=== PATIENT | male | born 1975 | race Caucasian/White ===

== ENCOUNTER 2019-10-09 02:09 | Emergency (ER) | payer SELFPAY ==
[~2019-10-09] VITALS: Ht 167.6 cm; Wt 68.0 kg
[2019-10-09] MEDS ORDERED: METHYLPREDNISOLONE SOD SUCC 125 MG/2 ML VIAL IM ONE (02:45)
[2019-10-09] MEDS ORDERED: TRAMADOL 50MG TABLET PO ONE (04:30)
[2019-10-09 05:16] VITALS: BP 123/74
== END 2019-10-09 05:17 | disposition home or self-care (01) ==
LOC: ER 02:20
DX: S39.012A Strain of muscle, fascia and tendon of lower back, initial encounter (principal); M62.830 Muscle spasm of back; X58.XXXA Exposure to other specified factors, initial encounter; Y93.89 Activity, other specified; Y92.89 Other specified places as the place of occurrence of the external cause
CPT/HCPCS: 72100; 96372; 99283; J2930

== ENCOUNTER 2019-11-13 01:36 | Emergency (ER) | payer SELFPAY ==
[~2019-11-13] VITALS: Ht 165.1 cm; Wt 65.0 kg
[2019-11-13] MEDS ORDERED: KETOROLAC 30MG/ML VIAL IM ONE (02:30)
[2019-11-13] MEDS ORDERED: IPRATROPIUM BROMIDE (0.02%) 0.5MG/2.5ML NEB HHN STA (03:29)
[2019-11-13] MEDS ORDERED: ALBUTEROL (0.083%) 2.5MG/3ML NEB HHN STA (03:29)
[2019-11-13 03:31] VITALS: BP 130/72
== END 2019-11-13 06:29 | disposition home or self-care (01) ==
LOC: ER 01:36
DX: M54.42 Lumbago with sciatica, left side (principal); I10 Essential (primary) hypertension; J45.909 Unspecified asthma, uncomplicated
CPT/HCPCS: 72100; 72170; 94640; 94660; 96372; 99284; J1885; Z7610